=== PATIENT | male | born 1990 | race Caucasian/White ===

== ENCOUNTER 2022-03-08 14:33 | Emergency (ER) | payer OTHER ==
[~2022-03-08] VITALS: Ht 182.9 cm; Wt 86.2 kg
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
[2022-03-08] MEDS ORDERED: NEOMY/BACITRA/POLYMYXIN B OINT UD PACKET TP ONE ×2 (15:00→15:03)
[2022-03-08] MEDS ORDERED: IBUPROFEN 800 MG TABLET ONE (15:54)
--- NOTE | 2022-03-08 15:57 | NUR ---
Dr. Man spoke to patient regarding results. Discharge papers given to patient.
[2022-03-08] MEDS ORDERED: IBUP-1957 PO (15:59)
[2022-03-08] MEDS ORDERED: IBUPROFEN 800 MG TABLET PO ONE (16:00)
== END 2022-03-08 16:38 | disposition home or self-care (01) ==
LOC: ER 14:33
DX: S13.4XXA Sprain of ligaments of cervical spine, initial encounter (principal); V49.40XA Driver injured in collision with unspecified motor vehicles in traffic accident, initial encounter; Y92.410 Unspecified street and highway as the place of occurrence of the external cause; R51.9 Headache, unspecified
CPT/HCPCS: A4663